=== PATIENT | female | born 1980 | race Caucasian/White ===

== ENCOUNTER 2020-08-29 13:32 | Emergency (ER) | payer OTHER, SELFPAY ==
[~2020-08-29] VITALS: Ht 165.1 cm; Wt 82.6 kg
[2020-08-29 13:36] VITALS: Ht 165.1 cm; Wt 82.6 kg
[2020-08-29 15:04] VITALS: BP 109/73
== END 2020-08-29 15:07 | disposition home or self-care (01) ==
LOC: ED 13:32
DX: U07.1 COVID-19 (principal); Z98.890 Other specified postprocedural states; Z90.49 Acquired absence of other specified parts of digestive tract
CPT/HCPCS: U0003